=== PATIENT | male | born 2005 | race Two or more races ===

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

== ENCOUNTER 2024-01-14 12:53 | Emergency (ER) | payer MEDICAID ==
[~2024-01-14] VITALS: Ht 188 cm; Wt 88.8 kg
[~2024-01-14 12:53] MED LIST changes: +CIPR-173 PO; +ZOFR4T PO
[2024-01-14 13:37] VITALS: BP 110/59; RESP 16; TEMP 97.4; O2SAT 97
[2024-01-14 13:53] VITALS: PULSE 81
[2024-01-14] MEDS ORDERED: HYDR25CA PO (14:01)
[2024-01-14] MEDS ORDERED: BISO5TAB44 PO (14:14)
== END 2024-01-14 14:10 | disposition home or self-care (01) ==
LOC: ER 12:53
DX: F41.1 Generalized anxiety disorder (principal); R07.89 Other chest pain; F12.10 Cannabis abuse, uncomplicated; Z88.2 Allergy status to sulfonamides
CPT/HCPCS: 93005

== ENCOUNTER 2024-03-08 16:48 | Emergency (ER) | payer MEDICAID ==
[~2024-03-08] VITALS: Ht 193 cm; Wt 84.6 kg
[~2024-03-08 16:48] MED LIST changes: +BISO5TAB44 PO
[2024-03-08 20:03] VITALS: RESP 17
[2024-03-08 21:18] LABS: COVID19 ANTIGEN SOFIA FIA NEGATIVE (NEGATIVE); Rapid Influenza A Negative (Negative); Rapid Influenza B Negative (Negative)
[2024-03-08] MEDS ORDERED: METH4PAK PO (21:55)
[2024-03-08] MEDS ORDERED: LORA-622 PO (21:55)
[2024-03-08 22:10] VITALS: BP 117/77; PULSE 62; TEMP 97.8; O2SAT 100
== END 2024-03-08 22:29 | disposition home or self-care (01) ==
LOC: ER 16:48
DX: J30.2 Other seasonal allergic rhinitis (principal); R05.9 Cough, unspecified; F41.9 Anxiety disorder, unspecified; F15.90 Other stimulant use, unspecified, uncomplicated; Z88.2 Allergy status to sulfonamides; Z79.899 Other long term (current) drug therapy; Z20.822 Contact with and (suspected) exposure to COVID-19
CPT/HCPCS: 36415; 87426; 87804

== ENCOUNTER 2024-07-16 09:54 | Emergency (ER) | payer MEDICAID ==
[~2024-07-16] VITALS: Ht 193 cm; Wt 89.0 kg
[~2024-07-16 09:54] MED LIST changes: +LORA-622 PO; +METH4PAK PO
--- NOTE | 2024-07-16 10:52 | ED.PDOC ---
History of Present Illness HPI Comments 19 year old male with no MHx presents with a chief complaint of URI symptoms for the last three days. Presents with body aches, runny nose, nonproductive cough and is not taking medications for the symptoms listed above. Denies sick contacts. Denies fevers chills night sweats unintentional weight loss Denies persistent chest pain, shortness of breath, leg swelling Denies history of asthma nor any breathing conditions Denies history of pneumonia Denies recent international travel Chief Complaint: Flu like Time Seen by MD: 10:23 Reviewed Notes: Nurses Notes, Medications, Allergies Information Source: Patient Past Medical History PAST MEDICAL HISTORY: Anxiety Surgical History: Denies all surgeries Family History Family History: Reviewed,noncontributory to illness Social History Smoker: Non-Smoker Alcohol: Denies ETOH Use Drugs: Marijuana Lives In: Home All Other Systems: Reviewed and Negative (per hpi) Physical Exam General Appearance: No Apparent Distress, Normal HEENT: Normal ENT Inspection, Pharynx Normal, TMs Normal Neck: Full Range of Motion, Non-Tender, Normal, Normal Inspection Respiratory: Chest Non-Tender, Lungs Clear, No Accessory Muscle Use, No Respiratory Distress, Normal Breath Sounds Cardiovascular: No Edema, No JVD, No Murmur, No Gallop, Normal Peripheral Pulses, Regular Rate/Rhythm Breast Exam: Deferred Gastrointestinal: No Organomegaly, Non Tender, No Pulsatile Mass, Normal Bowel Sounds, Soft Genitalia: Deferred Pelvic: Deferred Rectal: Deferred Extremities: No calf tenderness, Normal capillary refill, Normal inspection, Normal range of motion, Non-tender, No pedal edema Musculoskeletal : Apperance: Normal Neurologic: Alert, 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 Was a procedure done?: No Fever Differential Dx Differential Diagnosis: Viral Syndrome X-Ray, Labs, Meds, VS Vital Signs Date Time Temp Pulse Resp B/P (MAP) Pulse Ox O2 Delivery O2 Flow Rate FiO2 07/16/24 11:07 111 18 99 Room Air 07/16/24 11:07 99.4 111 18 126/66 (86) 99 99.4 07/16/24 10:10 99.4 111 18 126/66 (86) 99 X-Ray, Labs, Meds, VS Comment The patient is overall well-appearing nontoxic on exam. On physical exam, respirations even and unlabored, clear to auscultation bilaterally. Patient afebrile and heart rate within normal prior to discharge. Did not have any focal lung findings and therefore chest x-ray was not indicated during this exam Low suspicion of strep pharyngitis given physical exam findings and patient's presenting symptoms No signs of meningismus on exam Overall, the patient is well hydrated and nontoxic. Plan for empiric tx The patient was able to tolerate p.o. intake in the ED. at this time, patient is safe for discharge home. The exam findings and plan discussed. We will discharge home with PCP follow up and strict return precautions. Counseled symptoms are consistent with viral infection and antibiotics would not be helpful in resolving the illness sooner. Recommended vitamin C, rest, handwashing, and symptomatic care with the medications prescribed. Expect 2-week course with possibly of cough lingering up to 6 weeks Time of 1ST Reevaluation: 10:52 Reevaluation 1ST: Improved Patient Education/Counseling: Diagnosis, Treatment Family Education/Counseling: Diagnosis, Treatment Departure 1 Departure Time of Disposition: 11:05 Impression: Primary Impression: Viral syndrome Disposition: 01 HOME / SELF CARE / HOMELESS Condition: Stable e-Prescriptions Pseudoephedrine-Guaifenesin (Mucinex D) 1 Tab Tab 1 TAB PO BID for 10 Days, #20 TAB 0 Refills Prov: GIUSEPPE AIMN FREIGHT AGENT 07/16/24 Acetaminophen (Acetaminophen) 500 Mg Tab 500 MG PO Q6HP PRN for 10 Days, #40 TAB 0 Refills Prov: GIUSEPPE AMIN NP 07/16/24 Promethazine-Dm (Promethazine Dm 6.25-15 mg/5Ml) 1 Josseline Josseline 5 ML PO TID for 10 Days, #150 ML 0 Refills Prov: GIUSEPPE AMIN NP 07/16/24 Benzonatate (Benzonatate) 100 Mg Cap 1 CAP PO TID for 10 Days, #30 CAP 0 Refills Prov: GIUSEPPE AMIN FREIGHT AGENT 07/16/24 Azithromycin (Azithromycin) 250 Mg Tab 250 MG PO DAILY MDD 500 for 5 Days, #6 TAB 0 Refills 2 TABLETS ORALLY ON DAY ONE, THEN 1 TABLET ORALLY DAILY FOR 4 DAYS Prov: GIUSEPPE AMIN NP 07/16/24 Critical Care Note Critical Care Time?: No Stability Stability form required: No Heart Score Heart Score: Heart Score Response (Comments) Value History N/A 0 EKG N/A 0 Age N/A 0 Risk Factors N/A 0 Troponin N/A 0 Total 0 GIUSEPPE AMIN NP Jul 16, 2024 10:52
[2024-07-16] MEDS ORDERED: PSEU120T18 PO (11:06)
[2024-07-16] MEDS ORDERED: AZIT-43 PO (11:06)
[2024-07-16] MEDS ORDERED: PROM1SOL4 PO (11:06)
[2024-07-16] MEDS ORDERED: ACET500T58 PO (11:06)
[2024-07-16] MEDS ORDERED: BENZ100C97 PO (11:06)
[2024-07-16 11:07] VITALS: BP 126/66; PULSE 111; RESP 18; TEMP 99.4; O2SAT 99
[2024-07-16] MEDS: ONDANSETRON ODT 4 MG TAB PO ONE (11:19)
== END 2024-07-16 11:20 | disposition home or self-care (01) ==
LOC: ER 09:54
DX: B34.9 Viral infection, unspecified (principal); F41.9 Anxiety disorder, unspecified; F15.90 Other stimulant use, unspecified, uncomplicated
CPT/HCPCS: 99283; Q0162

== ENCOUNTER 2024-11-24 14:54 | Emergency (ER) | payer SELFPAY ==
[~2024-11-24] VITALS: Ht 175.3 cm; Wt 93.6 kg
[~2024-11-24 14:54] MED LIST changes: +ACET500T58 PO; +AZIT-43 PO; +BENZ100C97 PO; +PROM1SOL4 PO; +PSEU120T18 PO
[2024-11-24] MEDS ORDERED: IBUP-1456 PO (15:29)
--- NOTE | 2024-11-24 15:29 | ED.PDOC ---
Eye-HPI HPI Comments A 19 YEAR OLD MALE PRESENTS TO THE ED WITH COMPLAINT OF BILATERAL EAR PAIN AND SORE THROAT. PATIENT STATES HE HAS BEEN EXPERIENCING A SORE THROAT AND BILATERAL EAR PAIN FOR THE PAST 2 DAYS. PATIENT REPORTS HE WAS PRESCRIBED AUGMENTIN BY AN URGENT CARE, BUT NOTES THERE HAS BEEN NO IMPROVEMENT IN HIS SYMPTOMS. PATIENT DENIES FEVER, CHILLS, SHORTNESS OF BREATH, CHEST PAIN, ABDOMINAL PAIN, NAUSEA, VOMITING, HEADACHE, OR OTHER COMPLAINTS. NO OTHER SYMPTOMS OR MODIFYING FACTORS AT THIS TIME. PATIENT IS ALERT, ORIENTED X 4, AND HAS STEADY GAIT. Chief Complaint: Earache Time Seen by MD: 14:56 Primary Care Provider: ? Reviewed Notes: Nurses Notes, Medications, Allergies Allergies: Coded Allergies: Sulfa Antibiotics (Verified Allergy, Severe, 09/25/23) Home Meds Active Scripts Ibuprofen (Ibuprofen) 800 Mg Tab, 1 TAB PO TID, #30 TAB Prov:PARISA PACK 11/24/24 Pseudoephedrine-Guaifenesin (Mucinex D) 1 Tab Tab, 1 TAB PO BID for 10 Days, #20 TAB 0 Refills Prov:GIUSEPPE AMIN NP 07/16/24 Acetaminophen (Acetaminophen) 500 Mg Tab, 500 MG PO Q6HP PRN for 10 Days, #40 TAB 0 Refills Prov:GIUSEPPE AMIN NP 07/16/24 Promethazine-Dm (Promethazine Dm 6.25-15 mg/5Ml) 1 Josseline Josseline, 5 ML PO TID for 10 Days, #150 ML 0 Refills Prov:GIUSEPPE AMIN NP 07/16/24 Benzonatate (Benzonatate) 100 Mg Cap, 1 CAP PO TID for 10 Days, #30 CAP 0 Refills Prov:GIUSEPPE AMIN NP 07/16/24 Azithromycin (Azithromycin) 250 Mg Tab, 250 MG PO DAILY MDD 500 for 5 Days, #6 TAB 0 Refills 2 TABLETS ORALLY ON DAY ONE, THEN 1 TABLET ORALLY DAILY FOR 4 DAYS Prov:GIUSEPPE AMNI NP 07/16/24 Methylprednisolone (Medrol Dosepak) 4 Mg Maximiliano, 4 MG PO UD for 6 Days, #21 TAB UAD Prov:NANCY RYANP 03/08/24 Loratadine (Claritin) 10 Mg Tab, 10 MG PO ONCE for 30 Days, #30 TAB Prov:NANCY RYAN CUT OUT WORKER 03/08/24 Bisoprolol Fumarate (Bisoprolol Fumarate) 5 Mg Tab, 2.5 TAB PO DAILY, #30 TAB Prov:APRISA PACK PA 01/14/24 Ondansetron Odt 4MG Tab (ZOFRAN PO) 4 Mg Tb, 4 MG PO Q6HPRN PRN, #15 TAB ODT TAB-DISSOLVE IN MOUTH, THEN SWALLOW Prov:ARLETH MCKEON PAC 12/28/23 Ciprofloxacin Hcl (Cipro) 500 Mg Tab, 1 TAB PO BID for 7 Days, #14 TAB Prov:ARLETH MCKEON PAC 12/28/23 Albuterol Sulfate (Proair Digihaler) 108 Mcg/Act Aer, 2 PUFF IN Q6HP PRN, #1 AER Prov:YUVAL CABRALES MD 12/23/23 Ibuprofen Micronized (Ibuprofen) 800 Mg Tab, 800 MG PO Q8HP PRN, #30 TAB Prov:YUVAL CABRALES MD 12/23/23 Prednisone (Prednisone) 20 Mg Tab, 40 MG PO DAILY for 3 Days, #6 MG Prov:YUVAL CABRALES MD 12/23/23 Ibuprofen Micronized (Ibuprofen) 600 Mg Tab, 1 TAB PO Q6HPRN PRN, #20 TAB as needed for pain Prov:DAYRON [employer] Q MEDICAL BILLING CLERK 10/30/23 Benzonatate (Benzonatate) 200 Mg Cap, 1 CAP PO TID, #30 CAP as needed for cough Prov:DAYRON [employer] Q MEDICAL BILLING CLERK 10/30/23 Albuterol Sulfate (VENTOLIN MDI) 90 Mcg Ih, 1 PUFF IN Q4HPRN PRN, #1 INH as needed for shortness of breath and wheezing Prov:DAYRON [facility] MEDICAL BILLING CLERK 10/30/23 Prednisone (Prednisone) 20 Mg Tab, 1 TAB PO DAILY for 5 Days, #5 TAB start tomorrow with food Prov:DAYRON [facility] Q MEDICAL BILLING CLERK 10/30/23 Amoxicillin Trihydrate (Amoxicillin) 500 Mg Cap, 1 CAP PO TID for 10 Days, #30 CAP Prov:DAYRON [employer] Q MEDICAL BILLING CLERK 10/30/23 Benzocaine-Menthol (Mouth-Thro (Cepacol Sore Throat) 1 Timothy Timothy, 1 TIMOTHY MT Q6HPRN PRN, #24 TIMOTHY As needed for sore throat Prov:DAYRON [facility] MEDICAL BILLING CLERK 09/25/23 Albuterol Sulfate (Albuterol Sulfate Hfa) 108 Mcg/Act Aer, 1 PUFF IN Q4HPRN PRN, #1 INH As needed for shortness of breath or wheeze Prov:DAYRON [facility] MEDICAL BILLING CLERK 09/25/23 Prednisone (Prednisone) 20 Mg Tab, 1 TAB PO BID for 5 Days, #10 TAB start tomorrow with food Prov:DAYRON [facility] MEDICAL BILLING CLERK 09/25/23 Azithromycin (Zithromax Z-Maximiliano) 250 Mg Tab, 1 TAB PO DAILY for 5 Days, #6 TAB 2 Tablets today then 1 tablet start tomorrow Prov:DAYRON [facility] MEDICAL BILLING CLERK 09/25/23 Reported Medications Guaifenesin-Codeine (Robitussin/Codeine) 10 Ml So, 5 ML PO Q6HR, #120 ML as needed for cough 09/25/23 Information Source: Patient Mode of Arrival: Ambulatory Timing: Days Duration: Since onset, Days Prehospital treatment: None Quality: Pain, Red Lids: Normal Conjunctiva: Normal Cornea: Normal Pupils: Normal EOM: Normal Fundus: Normal Slit lamp exam: Normal Anterior chamber: Normal Mouth Location: Pharynx Mouth: Normal ENT Ear Exam: Normal, Red, Bulging, Dull, Normal Nose: Normal Sinuses: Normal Oropharynx: Tonsillar hypertrophy, Red Onset: Spontaneous Throat Exposed to: None History of: None Last Tetanus: Unknown Modifying factors: Nothing Associated signs and symptoms: Sore Throat, Ear Pain Past Medical History PAST MEDICAL HISTORY: Anxiety Surgical History: Denies all surgeries Family History Family History: Reviewed,noncontributory to illness Social History Smoker: Non-Smoker Alcohol: Denies ETOH Use Drugs: Marijuana Lives In: Home Constitutional: denies: chills, diaphoresis, fatigue, fever, malaise, sweats, weakness, others EENTM: reports: ear pain, throat pain, throat swelling; denies: blurred vision, double vision, ear bleeding, ear discharge, ear drainage, ear ringing, eye pain, eye redness, hearing loss, mouth pain, mouth swelling, nasal discharge, nose bleeding, nose congestion, nose pain, photophobia, tearing, voice changes, others Respiratory: denies: cough, hemoptysis, orthopnea, SOB at rest, shortness of breath, SOB with excertion, stridor, wheezing, others Cardiovascular: denies: chest pain, dizzy spells, diaphoresis, Dyspnea on exertion, edema, irregular heart beat, left arm pain, lightheadedness, palpitations, PND, syncope, others Gastrointestinal: denies: abdomen distended, abdominal pain, blood streaked bowels, constipated, diarrhea, dysphagia, difficulty swallowing, hematemesis, melena, nausea, poor appetite, poor fluid intake, rectal bleeding, rectal pain, vomiting, others Genitourinary: denies: burning, dysuria, flank pain, frequency, hematuria, incontinence, penile discharge, penile sore, pain, testicle pain, testicle swelling, urgency, others Neurological: denies: dizziness, fainting, headache, left sided numbness, left sided weakness, numbness, paresthesia, pre-existing deficit, right sided numbness, right sided weakness, seizure, speech problems, tingling, tremors, weakness, others Musculoskeletal: denies: back pain, gout, joint pain, joint swelling, muscle pain, muscle stiffness, neck pain, others Integumetry: denies: bruises, change in color, change in hair/nails, dryness, laceration, lesions, lumps, rash, wounds, others Allergic/Immunocompromised: denies: Difficulty Healing, Frequent Infections, Hives, Itching, others Hematologic/Lymphatic: denies: anemia, blood clots, easy bleeding, easy bruising, swollen glands, others Endocrine: denies: excessive hunger, excessive sweating, excessive thirst, excessive urination, flushing, intolerance to cold, intolerance to heat, unexplained weight gain, unexplained weight loss, others Psychiatric: denies: anxiety, bipolar disorder, depression, hopeless, panic disorder, schizophrenia, sleepless, suicidal, others All Other Systems: Reviewed and Negative Physical Exam General Appearance: No Apparent Distress, Normal HEENT: PERRL/EOMI, Pharyngeal Erythema (TONSILLAR SWELLING, NO EXUDATES. ), TM Abnormal (L) (ERYTHEMA AND DULL WITH EFFUSION OF LEFT TM. ), TM Abnormal (R) (ERYTHEMA AND DULL WITH MILD EFFUSION OF RIGHT TM. ) Neck: Full Range of Motion, Non-Tender, Normal, Normal Inspection Respiratory: Chest Non-Tender, Lungs Clear, No Accessory Muscle Use, No Respiratory Distress, Normal Breath Sounds Cardiovascular: No Edema, No JVD, No Murmur, No Gallop, Normal Peripheral Pulses, Regular Rate/Rhythm Breast Exam: Deferred Gastrointestinal: No Organomegaly, Non Tender, No Pulsatile Mass, Normal Bowel Sounds, Soft Genitalia: Deferred Pelvic: Deferred Rectal: Deferred Extremities: No calf tenderness, Normal capillary refill, Normal inspection, Normal range of motion, Non-tender, No pedal edema Musculoskeletal : Apperance: Normal Neurologic: Alert, timber girdler II-XII nml as Tested, No Motor Deficits, Normal Affect, Normal Mood, No Sensory Deficits Cerebellar Function: Normal Reflexes: Normal Skin: Dry, Normal Color, Warm Peripheral Pulses: 2+ carotid (R), 2+ carotid (L) Lymphatic: No Adenopathy Was a procedure done? Was a procedure done?: No EENT DIFF Eye: N/A Ear: Cerumen Impaction, Otitis Externa, Otitis Media, Pharyngitis, Sinusitis Nose: N/A Mouth: N/A Sore Throat: Pharyngitis, Streptococcal, Viral Pharyngitis, URI X-Ray, Labs, Meds, VS Comment EXTERNAL MEDICAL RECORDS REVIEWED: [NONE] INDEPENDENT HISTORIANS: [NONE] SOCIAL DETERMINANTS OF HEALTH: [NONE] LABS ORDERED: NONE REVIEWED AND INTERPRETED RESULTS: NONE IMAGING ORDERED: NONE TREATMENTS ORDERED: ROCEPHIN 1G IM PROCEDURES PERFORMED: NONE CRITICAL CARE TIME: NONE I HAVE DISCUSSED THE PATIENT WITH THE ATTENDING PHYSICIAN DR. ALBA AND HE AGREES WITH THE PATIENT'S PLAN OF CARE AND DISPOSITION. BASED ON HISTORY OF PRESENT ILLNESS, AND PHYSICAL EXAM, PATIENT WILL BE DISCHARGED HOME. DISCUSSED PLAN FOR DISCHARGE HOME WITH RX [MOTRIN 800MG]. MEDICATION WARNINGS GIVEN. SHARED DECISION MAKING: PATIENT INSTRUCTED TO FOLLOW UP WITH PRIMARY CARE PROVIDER IN 1-2 DAYS FOR RE-EVALUATION OF SYMPTOMS. PATIENT VERBALIZES UNDERSTANDING TO RETURN TO ED FOR NEW OR WORSENING SYMPTOMS OR IF FOLLOW UP WITH PCP CANNOT BE OBTAINED. PATIENT FEELS COMFORTABLE GOING HOME AT THIS TIME. ALL QUESTIONS ADDRESSED AT TIME OF DISCHARGE. Time of 1ST Reevaluation: 16:00 Reevaluation 1ST: Improved Patient Education/Counseling: Diagnosis, Treatment, Need For Follow Up Family Education/Counseling: Diagnosis, Treatment, Need For Follow Up Medical Screening: No EMC Exist At This Time Departure 1 Departure Time of Disposition: 16:00 Impression: Primary Impression: Acute tonsillitis Qualified Codes: J03.90 - Acute tonsillitis, unspecified Additional Impression: Otitis media of both ears Qualified Codes: H65.03 - Acute serous otitis media, bilateral Disposition: 01 HOME / SELF CARE / HOMELESS Condition: Stable Additional Instructions: FOLLOW-UP WITH PCP IN 1 TO 2 DAYS. TAKE MEDICATIONS PRESCRIBED. RETURN TO ED FOR ANY NEW OR WORSENING SYMPTOMS. e-Prescriptions Ibuprofen (Ibuprofen) 800 Mg Tab 1 TAB PO TID, #30 TAB Prov: PARISA PACK 11/24/24 Discharged With: Self Critical Care Note Critical Care Time?: No Stability Stability form required: No I personally scribed for PARISA PACK ([email or web address]) on 11/24/24 at 15:29. Electronically submitted by Ramses Bautista ([email or web address]). PARISA PACK November 24, 2024 15:29
[2024-11-24 15:31] VITALS: BP 117/65; PULSE 70; RESP 20; TEMP 98.2; O2SAT 97
[2024-11-24] MEDS: cefTRIAXone SOD 1,000 MG VL IM ONE (15:36)
== END 2024-11-24 15:56 | disposition home or self-care (01) ==
LOC: ER 14:54
DX: J03.90 Acute tonsillitis, unspecified (principal); H66.93 Otitis media, unspecified, bilateral; F41.9 Anxiety disorder, unspecified; F12.90 Cannabis use, unspecified, uncomplicated; Z79.1 Long term (current) use of non-steroidal anti-inflammatories (NSAID); Z79.52 Long term (current) use of systemic steroids; Z79.899 Other long term (current) drug therapy; Z88.2 Allergy status to sulfonamides
CPT/HCPCS: 96372; 99283; J0696

== ENCOUNTER 2025-07-01 21:14 | Emergency (ER) | payer MEDICAID ==
[~2025-07-01] VITALS: Ht 193 cm; Wt 97.2 kg
[~2025-07-01 21:14] MED LIST changes: +IBUP-1456 PO
[2025-07-01 22:58] VITALS: BP 128/82; PULSE 90; RESP 18; TEMP 98.4; O2SAT 96
[2025-07-01] MEDS ORDERED: AMOX875T4 PO (23:01)
[2025-07-01] MEDS ORDERED: IBUP-1456 PO (23:01)
--- NOTE | 2025-07-01 23:01 | ED.PDOC ---
Eye-HPI HPI Comments 20 year old male presents to ER with complaints of sore throat x 2 days. Patient reports he has been experiencing sore throat pain, body aches and congestion x2 days. He rates his current pain a 9/10 and reports that he has been taking Advil for his pain without relief. Patient presents to ER afebrile, ambulatory, with steady gait, in no distress. Denies fever, cough, shortness of breath, difficulty swallowing, nausea/vomiting, headache, dizziness or any further symptoms/complaints Chief Complaint: Sore Throat Time Seen by MD: 21:29 Primary Care Provider: UNKNOWN Reviewed Notes: Nurses Notes, Medications, Allergies Allergies: Coded Allergies: Sulfa Antibiotics (Verified Allergy, Severe, 09/25/23) Acetaminophen (Verified Allergy, Unknown, 07/01/25) Home Meds Active Scripts Ibuprofen (Ibuprofen) 800 Mg Tab, 1 TAB PO TID PRN, #30 TAB 0 Refills Prov:KAYA LIVINGSTON 07/01/25 Amoxicillin & Pot Clavulanate (Amoxicillin/Potassium Cla) 875 Mg Tab, 1 TAB PO BID for 7 Days, #14 TAB 0 Refills Prov:KAYA LIVINGSTON 07/01/25 Ibuprofen (Ibuprofen) 800 Mg Tab, 1 TAB PO TID, #30 TAB Prov:PARISA PACK 11/24/24 Pseudoephedrine-Guaifenesin (Mucinex D) 1 Tab Tab, 1 TAB PO BID for 10 Days, #20 TAB 0 Refills Prov:GIUSEPPE AMIN NP 07/16/24 Acetaminophen (Acetaminophen) 500 Mg Tab, 500 MG PO Q6HP PRN for 10 Days, #40 TAB 0 Refills Prov:GIUSEPPE AMIN NP 07/16/24 Promethazine-Dm (Promethazine Dm 6.25-15 mg/5Ml) 1 Josselnie Josseline, 5 ML PO TID for 10 Days, #150 ML 0 Refills Prov:GIUSEPPE AMIN NP 07/16/24 Benzonatate (Benzonatate) 100 Mg Cap, 1 CAP PO TID for 10 Days, #30 CAP 0 Refills Prov:GIUSEPPE AMIN NP 07/16/24 Azithromycin (Azithromycin) 250 Mg Tab, 250 MG PO DAILY MDD 500 for 5 Days, #6 TAB 0 Refills 2 TABLETS ORALLY ON DAY ONE, THEN 1 TABLET ORALLY DAILY FOR 4 DAYS Prov:GIUSEPPE AMIN CHILD LIFE ASSISTANT 07/16/24 Methylprednisolone (Medrol Dosepak) 4 Mg Maximiliano, 4 MG PO UD for 6 Days, #21 TAB UAD Prov:NANCY RYAN HAND COKE DRAWER 03/08/24 Loratadine (Claritin) 10 Mg Tab, 10 MG PO ONCE for 30 Days, #30 TAB Prov:NANCY RYAN HAND COKE DRAWER 03/08/24 Bisoprolol Fumarate (Bisoprolol Fumarate) 5 Mg Tab, 2.5 TAB PO DAILY, #30 TAB Prov:PARISA PACK PA 01/14/24 Ondansetron Odt 4MG Tab (ZOFRAN PO) 4 Mg Tb, 4 MG PO Q6HPRN PRN, #15 TAB ODT TAB-DISSOLVE IN MOUTH, THEN SWALLOW Prov:ARLETH MCKEON PAC 12/28/23 Ciprofloxacin Hcl (Cipro) 500 Mg Tab, 1 TAB PO BID for 7 Days, #14 TAB Prov:ARLETH MCKEON PAC 12/28/23 Albuterol Sulfate (Proair Digihaler) 108 Mcg/Act Aer, 2 PUFF IN Q6HP PRN, #1 AER Prov:YUVAL CABRALES MD 12/23/23 Ibuprofen Micronized (Ibuprofen) 800 Mg Tab, 800 MG PO Q8HP PRN, #30 TAB Prov:YUVAL CABRALES MD 12/23/23 Prednisone (Prednisone) 20 Mg Tab, 40 MG PO DAILY for 3 Days, #6 MG Prov:YUVAL CABRALES MD 12/23/23 Ibuprofen Micronized (Ibuprofen) 600 Mg Tab, 1 TAB PO Q6HPRN PRN, #20 TAB as needed for pain Prov:DAYRON KAISER Q CHILD LIFE ASSISTANT 10/30/23 Benzonatate (Benzonatate) 200 Mg Cap, 1 CAP PO TID, #30 CAP as needed for cough Prov:DAYRON KAIS[facility] Q CHILD LIFE ASSISTANT 10/30/23 Albuterol Sulfate (VENTOLIN MDI) 90 Mcg Ih, 1 PUFF IN Q4HPRN PRN, #1 INH as needed for shortness of breath and wheezing Prov:DAYRON K[facility] Q CHILD LIFE ASSISTANT 10/30/23 Prednisone (Prednisone) 20 Mg Tab, 1 TAB PO DAILY for 5 Days, #5 TAB start tomorrow with food Prov:DAYRON KAISER CHILD LIFE ASSISTANT 10/30/23 Amoxicillin Trihydrate (Amoxicillin) 500 Mg Cap, 1 CAP PO TID for 10 Days, #30 CAP Prov:DAYRON KAISER CHILD LIFE ASSISTANT 10/30/23 Benzocaine-Menthol (Mouth-Thro (Cepacol Sore Throat) 1 Timothy Timothy, 1 TIMOTHY MT Q6HPRN PRN, #24 TIMOTHY As needed for sore throat Prov:DAYRON KAISER CHILD LIFE ASSISTANT 09/25/23 Albuterol Sulfate (Albuterol Sulfate Hfa) 108 Mcg/Act Aer, 1 PUFF IN Q4HPRN PRN, #1 INH As needed for shortness of breath or wheeze Prov:DAYRON KAISER CHILD LIFE ASSISTANT 09/25/23 Prednisone (Prednisone) 20 Mg Tab, 1 TAB PO BID for 5 Days, #10 TAB start tomorrow with food Prov:DAYRON KAISER CHILD LIFE ASSISTANT 09/25/23 Azithromycin (Zithromax Z-Maximiliano) 250 Mg Tab, 1 TAB PO DAILY for 5 Days, #6 TAB 2 Tablets today then 1 tablet start tomorrow Prov:DAYRON KAISER CHILD LIFE ASSISTANT 09/25/23 Reported Medications Guaifenesin-Codeine (Robitussin/Codeine) 10 Ml So, 5 ML PO Q6HR, #120 ML as needed for cough 09/25/23 Mode of Arrival: Ambulatory Past Medical History PAST MEDICAL HISTORY: Anxiety Surgical History: Denies all surgeries Family History Family History: Unknown Social History Smoker: Non-Smoker Alcohol: Denies ETOH Use Drugs: Marijuana Lives In: Home Constitutional: reports: others (As stated in HPI) EENTM: reports: others (As stated in HPI) Respiratory: denies: cough, hemoptysis, orthopnea, SOB at rest, shortness of breath, SOB with excertion, stridor, wheezing, others Cardiovascular: denies: chest pain, dizzy spells, diaphoresis, Dyspnea on exertion, edema, irregular heart beat, left arm pain, lightheadedness, palpitations, PND, syncope, others Gastrointestinal: denies: abdomen distended, abdominal pain, blood streaked bowels, constipated, diarrhea, dysphagia, difficulty swallowing, hematemesis, melena, nausea, poor appetite, poor fluid intake, rectal bleeding, rectal pain, vomiting, others Genitourinary: denies: burning, dysuria, flank pain, frequency, hematuria, incontinence, penile discharge, penile sore, pain, testicle pain, testicle s welling, urgency, others Neurological: denies: dizziness, fainting, headache, left sided numbness, left sided weakness, numbness, paresthesia, pre-existing deficit, right sided numbness, right sided weakness, seizure, speech problems, tingling, tremors, weakness, others Musculoskeletal: denies: back pain, gout, joint pain, joint swelling, muscle pain, muscle stiffness, neck pain, others Integumetry: denies: bruises, change in color, change in hair/nails, dryness, laceration, lesions, lumps, rash, wounds, others Allergic/Immunocompromised: denies: Difficulty Healing, Frequent Infections, Hives, Itching, others Hematologic/Lymphatic: denies: anemia, blood clots, easy bleeding, easy bruising, swollen glands, others Endocrine: denies: excessive hunger, excessive sweating, excessive thirst, excessive urination, flushing, intolerance to cold, intolerance to heat, unexplained weight gain, unexplained weight loss, others Psychiatric: denies: anxiety, bipolar disorder, depression, hopeless, panic disorder, schizophrenia, sleepless, suicidal, others Physical Exam General Appearance: No Apparent Distress HEENT: PERRL/EOMI, Pharyngeal Erythema (Mild tonsillar swelling/erythema noted bilaterally with white exudates noted on right tonsil. Uvula-normal), TMs Normal Neck: Full Range of Motion, Non-Tender, Normal Respiratory: Chest Non-Tender, Lungs Clear, No Accessory Muscle Use, No Respiratory Distress, Normal Breath Sounds Cardiovascular: No Murmur, No Gallop, Regular Rate/Rhythm Breast Exam: Deferred Gastrointestinal: NOT DONE Genitalia: Deferred Pelvic: Deferred Rectal: Deferred Extremities: Normal capillary refill, Normal range of motion Neurologic: Alert, No Motor Deficits, Normal Affect, Normal Mood, No Sensory Deficits Cerebellar Function: Normal Reflexes: Normal Skin: Dry, Normal Color, Warm Peripheral Pulses: 2+ carotid (R), 2+ carotid (L), 2+ Radial (R), 2+ Radial (L), 2+ Brachial (R), 2+ Brachial (L) Lymphatic: No Adenopathy Was a procedure done? Was a procedure done?: No Sedation Sedation?: No EENT DIFF Eye: N/A Sore Throat: Epiglottitis, Mononeucleosis, Peritonsillar Abscess X-Ray, Labs, Meds, VS Vital Signs Date Time Temp Pulse Resp B/P (MAP) Pulse Ox O2 Delivery O2 Flow Rate FiO2 07/01/25 22:58 Room Air* 0 21 07/01/25 22:58 98.4 90 18 128/82 (97) 96 98.4 07/01/25 21:16 98.4 90 18 128/82 96 98.4 Patient afebrile, well appearing, tolerating p.o. intake well and in no distress prior to discharge Advised to drink plenty of fluids Advised to follow up with PCP 1-2 days Patient verbalized understanding and agreeable with current plan of care Advised to return to ER immediately if symptoms worsen Time of 1ST Reevaluation: 22:34 Reevaluation 1ST: N/A Patient Education/Counseling: Diagnosis, Treatment, Prognosis, Need For Follow Up Family Education/Counseling: No Family Present SEPSIS Sepsis Screen Date sepsis recognized/suspect: Jul 01, 2025 Time Sepsis recognized/suspect: 2117 Recent Procedure: No On Antibiotic Therapy: No Respiratory Rate >20: No Heart Rate >90: No Temp<36 C (96.8 F) or >38.3 C: No SBP <90 or MAP <65 mmHG: No New Acute Mental Status Change: No Is the patient on CPAP, BIPAP,: No Vital Signs Date Time Temp Pulse Resp B/P (MAP) Pulse Ox O2 Delivery O2 Flow Rate FiO2 07/01/25 22:58 Room Air* 0 07/01/25 22:58 98.4 90 18 128/82 (97) 96 98.4 07/01/25 21:16 98.4 90 18 128/82 96 98.4 Departure 1 Departure Time of Disposition: 22:59 Impression: Primary Impression: Acute tonsillitis Qualified Codes: J03.90 - Acute tonsillitis, unspecified Disposition: HOME / SELF CARE / HOMELESS Condition: Stable e-Prescriptions Ibuprofen (Ibuprofen) 800 Mg Tab 1 TAB PO TID PRN, #30 TAB 0 Refills Prov: KAYA LIVINGSTON 07/01/25 Amoxicillin & Pot Clavulanate (Amoxicillin/Potassium Cla) 875 Mg Tab 1 TAB PO BID for 7 Days, #14 TAB 0 Refills Prov: KAYA LIVINGSTON 07/01/25 Discharged With: Self Critical Care Note Critical Care Time?: No Stability Stability form required: No Heart Score Heart Score: Heart Score Response (Comments) Value History N/A 0 EKG N/A 0 Age N/A 0 Risk Factors N/A 0 Troponin N/A 0 Total 0 KAYA LIVINGSTON Jul 01, 2025 23:01
== END 2025-07-01 23:10 | disposition home or self-care (01) ==
LOC: ER 21:14
DX: J03.90 Acute tonsillitis, unspecified (principal); F12.90 Cannabis use, unspecified, uncomplicated; F41.9 Anxiety disorder, unspecified; Z79.899 Other long term (current) drug therapy; Z88.2 Allergy status to sulfonamides; Z79.52 Long term (current) use of systemic steroids; Z79.1 Long term (current) use of non-steroidal anti-inflammatories (NSAID)